=== PATIENT | female | born 1975 | race Caucasian/White ===

== ENCOUNTER 2024-02-07 12:22 | Emergency (ER) | payer OTHER ==
[~2024-02-07] VITALS: Ht 167.6 cm; Wt 81.6 kg
[2024-02-07 12:28] VITALS: O2SAT 100
[2024-02-07 14:20] LABS: HIV-1 p24 ANTIGEN NON REACTIVE (NONREACTIVE); HIV-1/2 ANTIBODY NON REACTIVE (NONREACTIVE)
[2024-02-08 08:06] LABS: HEPATITIS B CORE AB, TOTAL Negative (Negative); HEPATITIS B SURFACE AB, QUAL Reactive (.); HEPATITIS B SURFACE AG Negative (Negative); HEPATITIS C VIRUS ANTIBODY Non Reactive (Non Reactive)
== END 2024-02-07 13:02 | disposition home or self-care (01) ==
LOC: ER 12:22
DX: S61.232A Puncture wound without foreign body of right middle finger without damage to nail, initial encounter (principal); W46.0XXA Contact with hypodermic needle, initial encounter; Y93.89 Activity, other specified; Y92.89 Other specified places as the place of occurrence of the external cause; Y99.8 Other external cause status
CPT/HCPCS: 36415; 86704; 86706; 86803; 87340; 87806; A4606; A4663

== ENCOUNTER 2024-04-02 19:22 | Emergency (ER) | payer BC, OTHER ==
[~2024-04-02] VITALS: Ht 172.7 cm; Wt 79.8 kg
[2024-04-02] MEDS ORDERED: NAPR500T6 PO (21:05)
[2024-04-02 21:40] VITALS: BP 127/88; TEMP 97.7; O2SAT 97
== END 2024-04-02 21:18 | disposition home or self-care (01) ==
LOC: ER 19:24
DX: S93.492A Sprain of other ligament of left ankle, initial encounter (principal); Z90.49 Acquired absence of other specified parts of digestive tract; Z79.899 Other long term (current) drug therapy; W17.89XA Other fall from one level to another, initial encounter; Y93.89 Activity, other specified; Y92.89 Other specified places as the place of occurrence of the external cause; Y99.8 Other external cause status
CPT/HCPCS: 73610; 73630; A4606; A4663